=== PATIENT | male | born 1990 | race Caucasian/White ===

== ENCOUNTER 2019-05-04 07:55 | Day surgery (SDC) | payer MEDICAID ==
[~2019-05-04] VITALS: Ht 180.3 cm; Wt 79.8 kg
[2019-05-04 09:36] VITALS: BP 116/71; Ht 180.3 cm; Wt 79.8 kg
[2019-05-04] MEDS ORDERED: HYDROCODON-ACE1 EAC7 PO (13:16)
[2019-05-04] MEDS ORDERED: MIRALAX17 GM PO (13:17)
--- NOTE | 2019-05-04 14:26 | NUR ---
PT STATES PAIN OF 9/10. ADMINISTERED PAIN MED PER ORDER. WILL CONTINUE TO MONITOR.
--- NOTE | 2019-05-04 15:07 | NUR ---
DC INSTRUCTIONS GIVEN TO PT/SPOUSE. STATE UNDERSTANDING. DC'D IV CATH FULLY INTACT.
--- NOTE | 2019-05-04 15:27 | NUR ---
PT LEFT UNIT VIA WC AT 1527
== END 2019-05-04 15:27 | disposition home or self-care (01) ==
LOC: D.OPS 07:55 → D.PAN 10:45 → D.OPS 15:27
PROVIDERS: ATTEND Surgery
DX: K64.5 Perianal venous thrombosis (principal); Z01.812 Encounter for preprocedural laboratory examination